=== PATIENT | male | born 2000 | race Caucasian/White ===

== ENCOUNTER 2019-09-01 09:54 | Emergency (ER) | payer OTHER ==
[~2019-09-01] VITALS: Ht 190.5 cm; Wt 96.8 kg
[2019-09-01 09:57] VITALS: BP 113/57
== END 2019-09-01 10:47 | disposition home or self-care (01) ==
LOC: EMS 10:01
DX: Z03.818 Encounter for observation for suspected exposure to other biological agents ruled out (principal); Z88.0 Allergy status to penicillin
CPT/HCPCS: 99283; U0003

== ENCOUNTER 2021-02-23 14:41 | Emergency (ER) | payer OTHER ==
[~2021-02-23] VITALS: Ht 190.5 cm; Wt 95.5 kg
[2021-02-23 15:31] LABS: COVID AG,FIA SOURCE NASOPHARYNGEAL
[2021-02-23 15:37] VITALS: BP 134/62
== END 2021-02-23 15:44 | disposition home or self-care (01) ==
LOC: EMS 14:41
DX: Z20.822 Contact with and (suspected) exposure to COVID-19 (principal); Z88.1 Allergy status to other antibiotic agents
CPT/HCPCS: 87426; 99283; U0003

== ENCOUNTER 2024-06-13 20:30 | Emergency (ER) | payer OTHER ==
[~2024-06-13] VITALS: Ht 190.5 cm; Wt 93.2 kg
[2024-06-13 20:54] LABS: BASOPHILS % (AUTO) 0.8 % (0.0-2.0); EOSINOPHILS % (AUTO) 1.3 % (1.0-6.0); HEMATOCRIT 45.1 % (41-53); HEMOGLOBIN 15.4 g/dL (13.5-17.5); LYMPHOCYTES # (AUTO) 2.8 K/uL (1.0-4.8); LYMPHOCYTES % (AUTO) 34.6 % (22.0-44.0); MEAN CORPUSCULAR HEMOGLOBIN 30.6 pg (26.0-34.0); MEAN CORPUSCULAR HGB CONC 34.1 G/dL (31.0-37.0); MEAN CORPUSCULAR VOLUME 90 fL (80-100); MONOCYTES # (AUTO) 0.5 K/uL (0.1-1.0); MONOCYTES % (AUTO) 5.8 % (2.0-9.0); NEUTROPHILS # (AUTO) 4.7 K/uL (1.8-7.7); NEUTROPHILS % (AUTO) 57.5 % (40.0-70.0); PLATELET COUNT (AUTO) 237 K/uL (150-450); RED BLOOD CELL COUNT(AUTO) 5.03 MIL/uL (4.50-5.90); RED CELL DISTRIBUTION WIDTH 13.1 % (11.5-14.5); WHITE BLOOD COUNT (AUTO) 8.2 K/uL (4.5-11.0)
[2024-06-13 20:56] LABS: APPEARANCE,URINE CLEAR (CLEAR); BILIRUBIN,URINE NEGATIVE (NEGATIVE); COLOR,URINE COLORLESS (YELLOW); GLUCOSE, URINE (UA) NEGATIVE (NEGATIVE); KETONES,URINE NEGATIVE (NEGATIVE); LEUKOCYTE ESTERASE ,URINE NEGATIVE (NEGATIVE); NITRATE,URINE NEGATIVE (NEGATIVE); OCCULT BLOOD,URINE NEGATIVE (NEGATIVE); PH,URINE 6.5 (5.0-8.0); PROTEIN,URINE NEGATIVE (NEGATIVE); SPECIFIC GRAVITIY, URINE 1.013 (1.003-1.030); UROBILINOGEN,URINE <=1.0 mg/dL (<=1.0)
[2024-06-13 21:02] LABS: ANION GAP 9 mmol/L (8-16); CALCIUM, TOTAL 9.1 mg/dL (8.8-10.5); CARBON DIOXIDE 30 mmol/L (22-29); CHLORIDE 101 mmol/L (98-107); CREATININE 1.16 mg/dL (0.60-1.30); GLOMERULAR FILTR. RATE CALC > 60 mL/min (>60); GLUCOSE,RANDOM 108 mg/dL (70-110); POTASSIUM 3.8 mmol/L (3.5-5.1); SODIUM SERUM 140 mmol/L (136-145); UREA NITROGEN, BLOOD 21 mg/dL (7-18)
[2024-06-13 21:03] LABS: LIPASE 37 U/L (16-77)
[2024-06-13 21:08] LABS: ALBUMIN 4.1 g/dL (3.4-5.0); BILIRUBIN,DIRECT 0.1 mg/dL (0.00-0.20); BILIRUBIN,TOTAL 0.5 mg/dL (0.1-1.0); TOTAL PROTEIN, SERUM 7.2 g/dL (6.4-8.2)
[2024-06-13 22:30] VITALS: TEMP 98.4
[2024-06-13 23:20] VITALS: BP 119/67; PULSE 79; RESP 20; O2SAT 99
== END 2024-06-14 | disposition home or self-care (01) ==
LOC: EMS 20:30
DX: R35.89 Other polyuria (principal); Z88.1 Allergy status to other antibiotic agents
CPT/HCPCS: 76700; 76870; 80048; 80076; 81003; 83690; 85025; 99284

== ENCOUNTER 2024-09-05 08:20 | Emergency (ER) | payer OTHER ==
[~2024-09-05] VITALS: Ht 190.5 cm; Wt 93.2 kg
[2024-09-05 08:21] VITALS: BP 124/69; PULSE 62; RESP 18; TEMP 98.1; O2SAT 100
[2024-09-05] MEDS ORDERED: TADA10TA14 PO (08:24)
[2024-09-05] MEDS ORDERED: 0.9% SODIUM CHLORIDE 10 ML SYRINGE IVP ONE (08:50)
[2024-09-05 08:51] LABS: PLATELET COUNT (AUTO) 192 K/uL (150-450); RED BLOOD CELL COUNT(AUTO) 5.14 MIL/uL (4.50-5.90); RED CELL DISTRIBUTION WIDTH 13.4 % (11.5-14.5); WHITE BLOOD COUNT (AUTO) 8.8 K/uL (4.5-11.0)
[2024-09-05] MEDS ORDERED: SODIUM CHLORIDE 0.9% 100 ML ONE (08:51)
[2024-09-05] MEDS ORDERED: IOHEXOL 350 MG/ML 100 ML VIAL ONE (08:51)
[2024-09-05 09:05] LABS: CALCIUM, TOTAL 9.2 mg/dL (8.8-10.5); CREATININE 1.14 mg/dL (0.60-1.30); GLOMERULAR FILTR. RATE CALC > 60 mL/min (>60); GLUCOSE,RANDOM 90 mg/dL (70-110); SODIUM SERUM 136 mmol/L (136-145); UREA NITROGEN, BLOOD 16 mg/dL (7-18)
[2024-09-05 09:10] LABS: ASPARTATE AMINOTRANSFERASE 23.0 U/L (15-37); TOTAL PROTEIN, SERUM 7.2 g/dL (6.4-8.2)
[2024-09-05 09:19] LABS: APPEARANCE,URINE CLEAR (CLEAR); GLUCOSE, URINE (UA) NEGATIVE (NEGATIVE); LEUKOCYTE ESTERASE ,URINE NEGATIVE (NEGATIVE); NITRATE,URINE NEGATIVE (NEGATIVE); OCCULT BLOOD,URINE NEGATIVE (NEGATIVE); SPECIFIC GRAVITIY, URINE 1.028 (1.003-1.030)
== END 2024-09-05 11:27 | disposition home or self-care (01) ==
LOC: EMS 08:34
DX: R10.9 Unspecified abdominal pain (principal); Z88.0 Allergy status to penicillin; Z79.899 Other long term (current) drug therapy
CPT/HCPCS: 99285; 74177; 80048; 80076; 81003; 83690; 85025; 36415; 87491; 87591; Q9967; J7050

== ENCOUNTER 2024-11-18 10:07 | Emergency (ER) | payer OTHER ==
[~2024-11-18] VITALS: Ht 190.5 cm; Wt 93.2 kg
[~2024-11-18 10:07] MED LIST: TADA10TA14 PO
[2024-11-18 10:17] VITALS: TEMP 98.2
[2024-11-18] MEDS: ACETAMINOPHEN 500 MG TABLET PO ONE (10:23)
[2024-11-18 10:29] LABS: PLATELET COUNT (AUTO) 237 K/uL (150-450); RED BLOOD CELL COUNT(AUTO) 5.32 MIL/uL (4.50-5.90); RED CELL DISTRIBUTION WIDTH 12.8 % (11.5-14.5); WHITE BLOOD COUNT (AUTO) 4.6 K/uL (4.5-11.0)
[2024-11-18 10:30] VITALS: BP 134/72; PULSE 63; RESP 16; O2SAT 98
[2024-11-18 10:36] LABS: CALCIUM, TOTAL 9.0 mg/dL (8.8-10.5); CREATININE 1.02 mg/dL (0.60-1.30); GLOMERULAR FILTR. RATE CALC > 60 mL/min (>60); GLUCOSE,RANDOM 103 mg/dL (70-110); SODIUM SERUM 138 mmol/L (136-145); UREA NITROGEN, BLOOD 13 mg/dL (7-18)
[2024-11-18 10:47] LABS: TROPONIN I-HIGH SENSITIVITY 4 ng/L (<76)
== END 2024-11-18 11:05 | disposition home or self-care (01) ==
LOC: EMS 10:09
DX: R07.89 Other chest pain (principal); Z98.890 Other specified postprocedural states; Z79.899 Other long term (current) drug therapy; Z88.0 Allergy status to penicillin
CPT/HCPCS: 71101; 80048; 84484; 85025; 85379; 93005; 99285

== ENCOUNTER 2024-12-31 17:01 | Emergency (ER) | payer OTHER ==
[~2024-12-31] VITALS: Ht 190.5 cm; Wt 93.2 kg
[2024-12-31 17:03] VITALS: BP 142/75; PULSE 60; RESP 18; TEMP 97.5; O2SAT 99
[2024-12-31 17:23] LABS: APPEARANCE,URINE CLEAR (CLEAR); GLUCOSE, URINE (UA) NEGATIVE (NEGATIVE); LEUKOCYTE ESTERASE ,URINE NEGATIVE (NEGATIVE); NITRATE,URINE NEGATIVE (NEGATIVE); OCCULT BLOOD,URINE NEGATIVE (NEGATIVE); SPECIFIC GRAVITIY, URINE 1.008 (1.003-1.030)
[2024-12-31 17:30] LABS: PLATELET COUNT (AUTO) 224 K/uL (150-450); RED BLOOD CELL COUNT(AUTO) 5.47 MIL/uL (4.50-5.90); RED CELL DISTRIBUTION WIDTH 13.6 % (11.5-14.5); WHITE BLOOD COUNT (AUTO) 5.5 K/uL (4.5-11.0)
[2024-12-31] MEDS: ONDANSETRON 4 MG TABLET PO ONE (17:42)
[2024-12-31 17:46] LABS: CALCIUM, TOTAL 8.9 mg/dL (8.8-10.5); CREATININE 1.13 mg/dL (0.60-1.30); GLOMERULAR FILTR. RATE CALC > 60 mL/min (>60); GLUCOSE,RANDOM 101 mg/dL (70-110); SODIUM SERUM 138 mmol/L (136-145); UREA NITROGEN, BLOOD 15 mg/dL (7-18)
[2024-12-31 17:58] LABS: TROPONIN I-HIGH SENSITIVITY Less Than 4 ng/L (<76)
[2024-12-31] MEDS ORDERED: ONDA-104 PO (18:20)
== END 2024-12-31 19:32 | disposition home or self-care (01) ==
LOC: EMS 17:01
DX: R35.0 Frequency of micturition (principal); R68.2 Dry mouth, unspecified; R11.0 Nausea; Z98.890 Other specified postprocedural states; Z88.0 Allergy status to penicillin; Z79.899 Other long term (current) drug therapy
CPT/HCPCS: 99284; 80048; 81003; 82962; 84484; 85025; 36415; 93005; Q0162

== ENCOUNTER 2025-01-16 17:11 | Emergency (ER) | payer OTHER ==
[~2025-01-16] VITALS: Ht 190.5 cm; Wt 93.2 kg
[~2025-01-16 17:11] MED LIST changes: +ONDA-104 PO
[2025-01-16] MEDS: ACETAMINOPHEN 500 MG TABLET PO ONE (17:43)
[2025-01-16 18:09] LABS: CALCIUM, TOTAL 8.7 mg/dL (8.8-10.5); CREATININE 1.20 mg/dL (0.60-1.30); GLOMERULAR FILTR. RATE CALC > 60 mL/min (>60); GLUCOSE,RANDOM 105 mg/dL (70-110); SODIUM SERUM 140 mmol/L (136-145); UREA NITROGEN, BLOOD 18 mg/dL (7-18)
[2025-01-16 18:11] LABS: PLATELET COUNT (AUTO) 200 K/uL (150-450); RED BLOOD CELL COUNT(AUTO) 5.19 MIL/uL (4.50-5.90); RED CELL DISTRIBUTION WIDTH 13.0 % (11.5-14.5); WHITE BLOOD COUNT (AUTO) 6.2 K/uL (4.5-11.0)
[2025-01-16 18:22] LABS: TROPONIN I-HIGH SENSITIVITY 4 ng/L (<76)
[2025-01-16 18:37] VITALS: BP 128/77; PULSE 64; RESP 18; TEMP 98.2; O2SAT 98
== END 2025-01-16 18:39 | disposition home or self-care (01) ==
LOC: EMS 17:11
DX: R07.89 Other chest pain (principal); F41.9 Anxiety disorder, unspecified; Z98.890 Other specified postprocedural states; Z88.0 Allergy status to penicillin; Z79.899 Other long term (current) drug therapy
CPT/HCPCS: 71045; 80048; 84484; 85025; 85379; 93005; 99285; 36415-L1; 36415-TC